=== PATIENT | female | born 1990 | race American Indian/Alaskan Native ===

== ENCOUNTER 2016-07-03 14:00 | Emergency (ER) | payer SELFPAY ==
[2016-07-03 15:13] VITALS: BP 152/101
--- NOTE | 2016-07-03 16:27 | XRay Report ---
CHEST TWO VIEWS: 07/03/16 14:00:00 CLINICAL: Cough and shortness of breath. COMPARISON: None FINDINGS: Normal heart and pulmonary vasculature. The lungs are normally expanded and clear.The bones and soft tissues are unremarkable. IMPRESSION: Normal chest.
== END 2016-07-03 20:00 | disposition left against medical advice (07) ==
LOC: ED 14:00
DX: R05 Cough (principal); R09.81 Nasal congestion; Z53.21 Procedure and treatment not carried out due to patient leaving prior to being seen by health care provider
CPT/HCPCS: 71020; 82962

== ENCOUNTER 2016-07-03 22:46 | Emergency (ER) | payer SELFPAY ==
[2016-07-04 04:35] LABS: Basophils % (Auto) 0.6 % (0.0-1.8); Hematocrit 39.6 % (30.3-42.9); Hemoglobin 12.6 gm/dl (10.1-14.3); Mean Corpuscular HGB Conc 32 % (30-34); Mean Corpuscular Volume 77 fl (79-97); Platelet Count 198 K/mm3 (140-440); Red Blood Count 5.13 M/mm3 (3.65-5.03); Red Cell Distribution Width 15.3 % (13.2-15.2)
[2016-07-04 04:44] LABS: Mean Corpuscular Hemoglobin 25 pg (28-32)
[2016-07-04 04:50] LABS: Alanine Aminotransferase 18 units/L (7-56); Albumin 3.8 g/dL (3.9-5); Albumin/Globulin Ratio 1.1 %; Alkaline Phosphatase 111 units/L (35-129); Anion Gap 19 mmol/L; Bilirubin,Total 0.5 mg/dL (0.1-1.2); Blood Urea Nitrogen 7 mg/dL (7-17); Calcium 8.9 mg/dL (8.4-10.2); Carbon Dioxide 22 mmol/L (22-30); Chloride 99.5 mmol/L (98-107); Glucose 184 mg/dL (65-100); Lipase 14 units/L (13-60); Sodium 136 mmol/L (137-145); Total Protein 7.3 g/dL (6.3-8.2)
[2016-07-04 05:15] LABS: Creatine Kinase 94 units/L (30-135); Creatine Kinase MB < 1.0 ng/mL (0.0-4.0)
--- NOTE | 2016-07-04 05:47 | Emergency Department Report ---
HPI - General Chief Complaint: Upper Respiratory Infection Time Seen by Provider: 07/04/16 04:01 - HPI HPI: 26-year-old female presents today complaining of difficulty breathing and dry cough 5 days. Positive for subjective fever and chest pain. Positive for history of asthma but states that this feels different. Denies chills, nausea, vomiting, chest pain, nasal congestion. Denies sick contacts. Positive for history of diabetes and states that she has not taken her medication for one year. ED Past Medical Hx - Past Medical History Previous Medical History?: Yes Hx Diabetes: Yes Hx Asthma: Yes - Surgical History Past Surgical History?: No - Social History Smoking Status: Current Every Day Smoker Substance Use Type: None - Medications Home Medications: Home Medications Medication Instructions Recorded Confirmed Last Taken Type ALBUTEROL Inhaler [ProAir HFA 2 puff IH QID PRN #1 inhalation 07/04/16 Unknown Rx Inhaler] Albuterol Sulfate [Albuterol 0.63% 0.63 mg IH TID PRN #20 ml 07/04/16 Unknown Rx NEBS] Promethazine /Codeine 5 ml PO Q6H PRN #60 ml 07/04/16 Unknown Rx [Phenergan/Codeine 6.25-10 mg/5 ml] ED Review of Systems ROS: Stated complaint: WHEEZING Other details as noted in HPI Constitutional: fever (subjective). denies: chills Eyes: denies: eye pain ENT: denies: ear pain, throat pain, congestion Respiratory: cough, shortness of breath. denies: wheezing Cardiovascular: denies: chest pain, palpitations Endocrine: no symptoms reported Gastrointestinal: denies: abdominal pain, nausea, vomiting Skin: denies: rash Neurological: denies: headache, weakness Physical Exam - Physical Exam Vital Signs: Vital Signs 07/03/16 23:25 Temperature 98.2 F Pulse Rate 92 H Respiratory 18 Rate Blood Pressure 166/107 O2 Sat by Pulse 96 Oximetry Physical Exam: GENERAL: The patient is well-developed and well-nourished. Patient is in NAD. HEAD: Normocephalic. Atraumatic. EYES: PERRL. EARS: External auditory canals and tympanic membranes clear; hearing grossly intact. NOSE: Normal nasal mucosa with no nasal discharge. THROAT: No erythema, swelling or exudates. NECK: Supple, nontender, without lymphadenopathy. CHEST/LUNGS: Clear to auscultation throughout. No wheezing noted. HEART/CARDIOVASCULAR: Regular rate and rhythm. No murmurs, rubs or gallops. ABDOMEN: Abdomen is soft, nontender. Bowel sounds normoactive. No guarding or rebound tenderness. EXTREMITIES: Peripheral pulses intact. Capillary refill less than 2 seconds. NEURO: Alert and oriented x 3. Normal gait. ED Course Vital Signs 07/03/16 23:25 Temperature 98.2 F Pulse Rate 92 H Respiratory 18 Rate Blood Pressure 166/107 O2 Sat by Pulse 96 Oximetry ED Medical Decision Making - Lab Data Result diagrams: 07/04/16 04:20 07/04/16 04:20 Vital Signs 07/03/16 07/04/16 23:25 05:53 Temperature 98.2 F 98.2 F Pulse Rate 92 H 85 Respiratory 18 18 Rate Blood Pressure 166/107 Blood Pressure 136/86 [Right] O2 Sat by Pulse 96 96 Oximetry Lab Results 07/04/16 07/04/16 07/04/16 Range/Units 04:20 04:20 04:20 WBC 10.0 (4.5-11.0) K/mm3 RBC 5.13 H (3.65-5.03) M/mm3 Hgb 12.6 (10.1-14.3) gm/dl Hct 39.6 (30.3-42.9) % MCV 77 L (79-97) fl MCH 25 L (28-32) pg MCHC 32 (30-34) % RDW 15.3 H (13.2-15.2) % Plt Count 198 (140-440) K/mm3 Lymph % (Auto) 31.2 (13.4-35.0) % Sutter % (Auto) 5.8 (0.0-7.3) % Eos % (Auto) 3.0 (0.0-4.3) % Baso % (Auto) 0.6 (0.0-1.8) % Lymph # 3.1 (1.2-5.4) K/mm3 Sutter # 0.6 (0.0-0.8) K/mm3 Eos # 0.3 (0.0-0.4) K/mm3 Baso # 0.1 (0.0-0.1) K/mm3 Seg Neutrophils % 59.4 (40.0-70.0) % Seg Neutrophils # 5.9 (1.8-7.7) K/mm3 Sodium 136 L (137-145) mmol/L Potassium 4.0 (3.6-5.0) mmol/L Chloride 99.5 (98-107) mmol/L Carbon Dioxide 22 (22-30) mmol/L Anion Gap 19 mmol/L BUN 7 (7-17) mg/dL Creatinine 0.7 (0.7-1.2) mg/dL Estimated GFR > 60 ml/min BUN/Creatinine Ratio 10.00 % Glucose 184 H (65-100) mg/dL Calcium 8.9 (8.4-10.2) mg/dL Total Bilirubin 0.5 (0.1-1.2) mg/dL AST 18 (5-40) units/L ALT 18 (7-56) units/L Alkaline Phosphatase 111 (35-129) units/L Total Creatine Kinase 94 (30-135) units/L CK-MB (CK-2) < 1.0 (0.0-4.0) ng/mL CK-MB (CK-2) Rel Index 1.0 (0-4) Troponin T < 0.010 (0.00-0.029) ng/mL Total Protein 7.3 (6.3-8.2) g/dL Albumin 3.8 L (3.9-5) g/dL Albumin/Globulin Ratio 1.1 % Lipase 14 (13-60) units/L - Radiology Data Radiology results: report reviewed Chest x-ray: Normal heart and pulmonary vasculature. The lungs are normally expanded and clear. The bones and soft tissues are unremarkable. Performed at 1513 hours yesterday. - Medical Decision Making 26-year-old female presents today with difficulty breathing 5 days. Her x-ray results reveal no acute findings. Her lab results reveal elevated blood glucose levels, patient has history of diabetes and refuses to take medication. Discussed with Dr. Lyons. Patient is in no acute distress at this time. She will be discharged home and is encouraged to follow up with a primary care provider. Patient refuses treatment for diabetes. She will be sent home on promethazine/codeine and albuterol and is encouraged to return to the emergency room for any worsening symptoms. Critical care attestation.: If time is entered above; I have spent that time in minutes in the direct care of this critically ill patient, excluding procedure time. ED Disposition Clinical Impression: Shortness of breath, Cough Disposition: DISCHARGED TO HOME OR SELFCARE Is pt being admited?: No Does the pt Need Aspirin: No Condition: Stable Instructions: Acute Cough (ED), Dyspnea (ED) Additional Instructions: Follow-up with primary care provider. Return to the emergency department if symptoms worsen. Prescriptions: ALBUTEROL Inhaler [ProAir HFA Inhaler] 2 puff IH QID PRN #1 inhalation PRN Reason: Shortness Of Breath Albuterol Sulfate [Albuterol 0.63% NEBS] 0.63 mg IH TID PRN #20 ml PRN Reason: Wheezing Promethazine /Codeine [Phenergan/Codeine 6.25-10 mg/5 ml] 5 ml PO Q6H PRN #60 ml PRN Reason: cough Referrals: PRIMARY CARE, [Primary Care Provider] - 3-[address] [facility] [Outside] - 3-5 Days Forms: Work/School Release Form(ED), Accompanied Note Time of Disposition: 06:02
[2016-07-04 05:54] VITALS: BP 136/86
== END 2016-07-04 06:17 | disposition home or self-care (01) ==
LOC: ED 22:46
DX: R06.02 Shortness of breath (principal); E11.9 Type 2 diabetes mellitus without complications; J45.909 Unspecified asthma, uncomplicated; F17.200 Nicotine dependence, unspecified, uncomplicated
CPT/HCPCS: 36415; 80053; 82550; 82553; 83690; 84484; 85025; 93005; 93010; 99283